=== PATIENT | female | born 1970 | race Caucasian/White ===

== ENCOUNTER 2019-08-05 13:49 | Emergency (ER) | payer OTHER ==
[~2019-08-05] VITALS: Ht 160 cm; Wt 56.7 kg
[~2019-08-05 13:49] MED LIST: CLEOCIN HCL300 MG PO; IBUPROFEN 800800 MG PO; NORCO 5-325 TA1 EACH PO; SYNTHROID100 MC1 PO
[2019-08-05 14:25] LABS: ABSOLUTE BASOPHILS 0.1 thou/uL (0.0-0.2); ABSOLUTE EOSINOPHILS 0.1 thou/uL (0.0-0.7); ABSOLUTE LYMPHOCYTES 2.1 thou/uL (0.8-5.3); ABSOLUTE MONOCYTES 0.4 thou/uL (0.0-1.2); ABSOLUTE NEUTROPHILS 4.2 thou/uL (1.6-8.1); BASOPHILS 1.1 %; EOSINOPHILS 1.1 %; HEMATOCRIT 38.1 % (37.0-47.0); HEMOGLOBIN 13.1 gm/dL (12.0-15.0); LYMPHOCYTES 30.4 %; MCH 30.5 pg (26.0-34.0); MCHC 34.4 g/dL (28.0-37.0); MCV 88.7 fL (80.0-100.0); MONOCYTES 6.3 %; MPV 8.9 fl. (7.2-11.1); NUCLEATED RBCS 0 /100WBC; PLATELET COUNT* 309 thou/uL (150-400); POLYS 61.1 %; RBC 4.29 mil/uL (4.20-5.00); RDW-CV 14.9 % (10.5-14.5); WBC 6.9 thou/uL (4.0-11.0)
[2019-08-05 14:32] LABS: CALCIUM 8.9 mg/dL (8.5-10.1); CREATININE 0.8 mg/dL (0.6-1.3); POTASSIUM 3.9 mmol/L (3.5-5.1)
[2019-08-05 14:33] LABS: PROTIME 10.2 Seconds (9.20-11.50)
[2019-08-05 14:42] LABS: TOTAL BILIRUBIN 0.4 mg/dL (<0.1-1.0)
--- NOTE | 2019-08-05 16:25 | EKG ---
[place] [address] ELECTROCARDIOGRAM REPORT Name: MIKE BROWNING Room: [employer]#: [id number] Admission: 08/05/19 Attend Phys: Discharge: Date of : 68 Date of Service: 08/05/19 1355 Report #: [id number] THIS REPORT FOR: //name// [facility] ED Test Date: 2019-08-05 Test Time: 13:55:22 Pat Name: MIKE BROWNING Department: Room: Gender: F Head Of Strategy: : 1970 Requested By: Braden Colbert Order Number: [id number] MD: Juan Black Measurements Intervals [place] Rate: 94 P: 78 MA: 145 QRS: 61 QRSD: 90 T: QT: 324 QTc: 406 Interpretive Statements Sinus rhythm Borderline repolarization abnormality Compared to ECG 08/11/2013 15:52:11 Sinus tachycardia no longer present Electronically Signed On 08-05-2019 16:23:58 CDT by Juan Black [email or web address] <ELECTRONICALLY SIGNED> By: Juan Black MD, [facility] 08/05/19 1623 1355 [id number] Juan Black MD, FACC /EPI
[2019-08-05 16:50] VITALS: BP 110/69
== END 2019-08-05 16:52 | disposition home or self-care (01) ==
LOC: M.ERS 13:49
PROVIDERS: Emergency Medicine
DX: R07.89 Other chest pain (principal); E03.9 Hypothyroidism, unspecified

== ENCOUNTER → 2020-11-19 | Day surgery (SDC) | payer OTHER ==
[~2020-11-19] MED LIST changes: +IRON18 M1 PO; +LYRICA150 MG PO; +MAPAP500 MG PO; +NORCO5 PO; +VITAMIN D210 MCG PO
--- NOTE | ~2020-11-19 | OP ---
[facility] [address] [place] [address] OPERATIVE REPORT Name: NALLELYMIKE MATTHEW Room: [facility] M..#: [id number] Admission: 11/19/20 Attend Phys: Mil Bains Discharge: Date of : 68 Report #: [id number] THIS REPORT FOR: cc: [place] Anna S. DO Patterson, Jonathan D. MD ~ DOC #: [id number] Mil Bains MD DATE OF SURGERY: 11/19/2020 PREOPERATIVE DIAGNOSIS: Chronic cholecystitis. POSTOPERATIVE DIAGNOSIS: Chronic cholecystitis. OPERATION: Laparoscopic cholecystectomy. SURGEON: Mil Bains MD ANESTHESIA: General. ESTIMATED BLOOD LOSS: Minimal. SPECIMENS: Gallbladder. DESCRIPTION OF PROCEDURE: After informed consent was obtained, the patient was brought to the operating room and placed supine. SCDs were placed and working, preoperative antibiotics were administered, general anesthesia was induced. The abdomen was prepped and draped in the usual sterile fashion. A 10 mm incision was made above the umbilicus. Fascia was incised and a trocar was placed. Pneumoperitoneum was established. Three right upper quadrant 5 mm ports were placed under direct vision. The gallbladder was grasped and retracted cephalad. Infundibulum was grasped and retracted laterally. I dissected out the cystic duct and cystic artery. Cystic duct and artery were clipped and ligated leaving 2 clips on the remaining duct and one on the remaining artery. Gallbladder was then taken off the liver bed with electrocautery. It was placed into an Endopouch and removed. The fascia was then closed with a [id number] 0 Vicryl. Skin was closed with 4-0 Monocryl. Incisions were dressed with Steri-Strips. COMPLICATIONS: None. DISPOSITION: The patient was taken to recovery in satisfactory condition. MD HERO Herzog/[place] [address] OPERATIVE REPORT Name: MIKE BROWNING [id number] Admission: 11/19/20 Attend Phys: Mil Bains Discharge: Date of : 68 Report #: [id number] By: [id number] Bains MD /eduin
[2020-11-19 06:56] LABS: CALCIUM 8.6 mg/dL (8.5-10.1); CREATININE 0.8 mg/dL (0.6-1.3); POTASSIUM 3.8 mmol/L (3.5-5.1)
[2020-11-19 07:01] LABS: ALBUMIN 3.6 g/dL (3.4-5.0); TOTAL BILIRUBIN 0.3 mg/dL (<0.1-1.0); TOTAL PROTEIN 7.3 g/dL (6.4-8.2)
== END | disposition home or self-care (01) ==
LOC: M.SUR 11-18 10:15
PROVIDERS: ATTEND Surgery
DX: K81.1 Chronic cholecystitis (principal); R10.11 Right upper quadrant pain; E05.90 Thyrotoxicosis, unspecified without thyrotoxic crisis or storm; Z98.890 Other specified postprocedural states; Z79.899 Other long term (current) drug therapy; Z20.822 Contact with and (suspected) exposure to COVID-19; Z79.891 Long term (current) use of opiate analgesic